=== PATIENT | female | born 1960 | race African-American/Black ===

== ENCOUNTER 2022-10-14 11:57 | Outpatient (OUT) | payer OTHER, SELFPAY ==
[2022-10-14 12:23] LABS: Anion Gap 7.3; BUN Creatinine Ratio 13.3; Calcium 9.4 mg/dL (8.5-10.1); Carbon Dioxide 32.3 mmol/L (21.0-32.0); Chloride 104 mmol/L (98-107); Estimated GFR (African America >60 (>=60); Estimated GFR (Non-African Ame >60 (>=60); Glucose 77 mg/dL (74-106); Potassium 3.6 mmol/L (3.5-5.1); Sodium 140 mmol/L (136-145)
[2022-10-14 12:30] VITALS: BP 116/82; PULSE 73; RESP 18; TEMP 36.1; O2SAT 98
[2022-10-14] MEDS: DENOSUMAB 60 MG/ML SYRINGE SUBQ (12:33)
== END 2022-10-14 11:58 | disposition home or self-care (01) ==
LOC: LAB 12:01
PROVIDERS: PCP Family Medicine; Visit Provider Family Medicine
DX: M81.0 Age-related osteoporosis without current pathological fracture (principal); Z79.899 Other long term (current) drug therapy
CPT/HCPCS: 36415; 80048; 96372; J0897

== ENCOUNTER 2023-09-11 07:31 | Outpatient (RCR) | payer OTHER, SELFPAY ==
[2023-09-11 12:35] VITALS: BP 109/81; PULSE 91; TEMP 36.8; O2SAT 98
[2023-09-11] MEDS: DENOSUMAB 60 MG/ML SYRINGE SUBQ (12:53)
== END 2023-09-22 23:59 | disposition home or self-care (01) ==
LOC: INF 07:31
PROVIDERS: PCP Family Medicine; Visit Provider Family Medicine
DX: M81.0 Age-related osteoporosis without current pathological fracture (principal)
CPT/HCPCS: 96372; J0897